=== PATIENT | male | born 1960 | race Caucasian/White ===

== ENCOUNTER 2017-05-12 12:32 | Emergency (ER) | payer MEDICAID ==
[~2017-05-12] VITALS: Ht 167.6 cm; Wt 72.2 kg
[2017-05-12 13:22] LABS: HEMATOCRIT 45.7 % (39.2-51.8); HEMOGLOBIN 15.7 g/dL (13.7-18.0); WHITE BLOOD COUNT 12.1 x10^3/uL (3.4-10)
[2017-05-12] MEDS ORDERED: ONDANSETRON 2MG/ML, 2ML ONE (13:24)
[2017-05-12] MEDS ORDERED: HYDROmorphone 1 MG/ML, 1ML ONE (13:24)
[2017-05-12] MEDS ORDERED: FAMOTIDINE 20 MG/2 ML ONE (13:25)
[2017-05-12] MEDS ORDERED: ONDANSETRON 2MG/ML, 2ML IVPush ONE (13:30)
[2017-05-12] MEDS ORDERED: FAMOTIDINE 20 MG/2 ML IVP ONE (13:30)
[2017-05-12] MEDS ORDERED: HYDROmorphone 1 MG/ML, 1ML IVPush PRN (13:30)
[2017-05-12] MEDS ORDERED: SODIUM CHLORIDE FLUSH 10ML SYR IVF ONE (13:30)
[2017-05-12] MEDS ORDERED: SODIUM CHLORIDE 0.9% 1,000ML IVBOLUS ONE (13:30)
[2017-05-12 13:32] LABS: ASPARTATE AMINO TRANSFERASE 13 U/L (15-37); BLOOD UREA NITROGEN 17 mg/dL (7-18)
[2017-05-12 13:37] LABS: IS PT STATUS REG ER OR PRE ER? YES
[2017-05-12] MEDS ORDERED: HYDR-3307 PO (13:43)
[2017-05-12 15:06] VITALS: BP 140/93
== END 2017-05-12 15:08 | disposition home or self-care (01) ==
LOC: ED 14:56
DX: K29.50 Unspecified chronic gastritis without bleeding (principal); E78.00 Pure hypercholesterolemia, unspecified
CPT/HCPCS: 36415; 74022; 76700; 80053; 83690; 84484; 85025; 93005; 96361; 96374; 96375; 99285; J1170; J2405; J7030; S0028